=== PATIENT | female | born 1940 | race Caucasian/White ===

== ENCOUNTER 2022-08-06 15:44 | Inpatient (IN) ==
--- NOTE | 2022-08-06 16:45 | DR.GENAD ---
HPI Time Seen Time Seen by Provider: 08/06/22 16:43 PCP Primary Care Physician: Adán Hall Complaint/Symptoms Chief Complaint:: Bilateral cellulitus to feet, patient has had confusion x several months but seems worse today. Patient c/o of severe pain lower legs and feet Self Treatment fo Chief Complaint: seen in [facility] earlier in the week COVID-19 Coronavirus risk:travel/contact w/high risk person: No Has patient experienced Coronavirus symptoms: No Source History Provided: Patient and Family Member Mode of Arrival Mode of Arrival: Wheelchair Timing Onset of Chief Complaint: 08/06/22 PMH PMH Past Medical History: Yes Past Medical History: Coronary Artery Disease Past Medical History Comment: Rnal failure, Stents and CABG, cervical CA Past Surgical History: Yes Surgical History: CABG/Valve Surgery, Cholecystectomy, [employer] Surgery, Hysterectomy and Ortho Surgery Family History History of Family Medical Conditions: Yes Family Medical History: Diabetes Mellitus, Coronary Artery Disease and Hypertension Social History Does patient currently use any type of tobacco product: No Have you used tobacco products in the last 12 months: No Type of Tobacco Use: None Does any household member use tobacco: No Alcohol Use: None Do you use any recreational Drugs:: No Lives With: Alone Lives Where: Home Travel Risk Coronavirus risk:travel/contact w/high risk person: No Has patient experienced Coronavirus symptoms: No Infectious screening In the last 2 months have you had wt loss of >10#?: NO Have you had fever, night sweats or hemotysis?: No Have you traveled outside the country in the last 6 months?: No Isolation: Standard PE Vital Signs Vitals: Temperature 98.4 F Pulse Rate 110 Respiratory Rate 24 Blood Pressure 113/55 O2 Sat by Pulse Oximetry 96 ROR Labs Reviewed Result Diagrams: 08/06/22 17:34 08/06/22 17:34 Laboratory: WBC 14.5 X10^3/uL (3.6-10.0) H 08/06/22 17:34 RBC 3.48 X10^6/uL (3.5-5.4) L 08/06/22 17:34 Hgb 10.8 g/dL (12.0-16.0) L 08/06/22 17:34 Hct 31.7 % (36.0-47.0) L 08/06/22 17:34 MCV 91.2 fL (80.0-100.0) 08/06/22 17:34 MCH 31.0 pg (27.0-34.0) 08/06/22 17: MCHC 34.0 g/dL (33.0-35.0) 08/06/22 17:34 RDW 14.1 % (11.6-16.5) 08/06/22 17:34 Plt Count 241 X10^3/uL (150.0-450.0) 08/06/22 17:34 MPV 9.2 fL (7.4-11.0) 08/06/22 17:34 Neut % (Auto) 76.7 % (42.0-75.0) H 08/06/22 17:34 Lymph % (Auto) 13.1 % (21.0-51.0) L 08/06/22 17:34 [place] % (Auto) 8.6 % (0.0-13.0) 08/06/22 17:34 Eos % (Auto) 0.8 % (0.9-2.9) L 08/06/22 17:34 Baso % (Auto) 0.8 % (0.2-1.0) 08/06/22 17:34 Neut # (Auto) 11.1 x10^3/uL (2.2-4.8) H 08/06/22 17:34 Lymph # (Auto) 1.9 X10^3/uL (1.3-2.9) 08/06/22 17:34 [place] # (Auto) 1.2 x10^3/uL (0.3-0.8) H 08/06/22 17:34 Eos # (Auto) 0.1 x10^3/uL (0.0-0.2) 08/06/22 17:34 Baso # (Auto) 0.1 X10^3/uL (0.0-0.1) 08/06/22 17:34 Absolute Nucleated RBC 0.0 /100WBC 08/06/22 17:34 Sodium 136 mmol/L (136-145) 08/06/22 17:34 Corrected Sodium TNP 08/06/22 17:34 Potassium 4.7 mmol/L (3.5-5.1) 08/06/22 17:34 Chloride 100 mmol/L (98-107) 08/06/22 17:34 Carbon Dioxide 26.3 mmol/L (21-32) 08/06/22 17:34 BUN 25 mg/dL (7-18) H 08/06/22 17:34 Creatinine 1.56 mg/dL (0.55-1.02) H 08/06/22 17:34 Est GFR (MDRD) Af Amer 41 (>60) L 08/06/22 17:34 Est GFR (MDRD) Non-Af 34 (>60) L 08/06/22 17:34 Glucose 104 mg/dL (65-99) H 08/06/22 17:34 Lactic Acid 0.8 mmol/L (0.4-2.0) 08/06/22 17:34 Calcium 9.4 mg/dL (8.5-10.1) 08/06/22 17:34 Corrected Calcium 10.0 mg/dL (8.5-10.1) 08/06/22 17:34 Total Bilirubin 0.50 mg/dL (0.2-1.0) 08/06/22 17:34 AST 21 Units/L (15-37) 08/06/22 17:34 ALT 19 Units/L (12-78) 08/06/22 17:34 Alkaline Phosphatase 88 Units/L (46-116) 08/06/22 17:34 Ammonia < 10 umol/L (11-32) L 08/06/22 17:34 Troponin I High Sens 4.1 ng/L (4.0-60.0) 08/06/22 17:34 B-Natriuretic Peptide 193 pg/mL (0-79) H 08/06/22 17:34 Total Protein 7.0 g/dL (6.4-8.2) 08/06/22 17:34 Albumin 3.3 g/dL (3.4-5.0) L 08/06/22 17:34 Globulin 3.7 g/dL (2.5-4.5) 08/06/22 17:34 Albumin/Globulin Ratio 0.9 Ratio (1.1-2.1) L 08/06/22 17:34 Specimen Type Catherized urine 08/06/22 19:45 Urine Color Pale yellow (YELLOW) 08/06/22 19:45 Urine Appearance Clear (CLEAR) 08/06/22 19:45 Urine pH 6.0 (5.0 - 8.0) 08/06/22 19:45 Ur Specific [place] 1.015 (1.000-1.030) 08/06/22 19:45 Urine Protein 1+ (NEGATIVE) 08/06/22 19:45 Urine Glucose (UA) Negative (NEGATIVE) 08/06/22 19:45 Urine Ketones Negative (NEGATIVE) 08/06/22 19:45 Urine Blood Negative (NEGATIVE) 08/06/22 19:45 Urine Nitrite Negative (NEGATIVE) 08/06/22 19:45 Urine Bilirubin Negative (NEGATIVE) 08/06/22 19:45 Urine Urobilinogen Normal (NORMAL) 08/06/22 19:45 Ur Leukocyte Esterase 1+ (NEGATIVE) 08/06/22 19:45 Urine RBC None seen /HPF (0-3) 08/06/22 19:45 Urine WBC 0-2 /HPF (0-5) 08/06/22 19:45 Ur Squamous Epith Cells Rare /HPF (NEGATIVE) 08/06/22 19:45 Urine Bacteria Negative /HPF (NEGATIVE) 08/06/22 19:45 Ur Culture Indicated? No/not indicated 08/06/22 19:45 Opioid Opioid Risk Tool Age (Javier box if 16-45): No History of Preadolescent Sexual Abuse: No Total: 0 Total Score Risk Category: Low Risk Copyright: Byron JUSTIN predicting aberrant behaviors Discharge Plan Discharge Plan Patient Disposition: 01 HOME, SELF-CARE Condition: Stable Orders to Discharge Patient Discharge Orders: Transfer (Routine); Ordered 08/06/22 Ordered By: HELADIO CUMMINGS
[2022-08-06] MEDS ORDERED: NS 1,000 ML IV 1,000 ML ONE (16:59)
--- NOTE | 2022-08-06 17:04 | EKG ---
Test Reason : HTN Blood Pressure : */* mmHG Vent. Rate : 97 BPM Atrial Rate : 97 BPM P-R Int : 174 ms QRS Dur : 160 ms QT Int : 398 ms P-R-T Axes : 44 4 -11 degrees QTc Int : 505 ms Normal sinus rhythm Right bundle branch block Septal infarct , age undetermined T wave abnormality, consider lateral ischemia Abnormal ECG No previous ECGs available Confirmed by Robson Gaitan ([id number]) on 08/08/2022 7:43:07 AM Referred By: Confirmed By: Robson Gaitan
[2022-08-06] MEDS: NS 1,000 ML IV 1,000 ML IV SCH (17:31)
--- NOTE | 2022-08-06 17:38 | CT ---
EXAM: HEAD CT WITHOUT INTRAVENOUS CONTRASTHISTORY: Altered mental status.TECHNIQUE: Spiral axial CT images are obtained through the brain without the administration of intravenous contrast. Additional sagittal and coronal reformatted images are reconstructed.DOSIMETRY: Total DLP 864.84 mGycm; CTDI 48 mGyCOMPARISON: None available.FINDINGS:There are patchy parenchymal lucencies within the white matter tracks of the centrum semiovale, consistent with chronic sequela of atherosclerotic microvascular ischemic disease. Severe atherosclerosis of the carotid siphons is seen. Consider follow-up MRA as clinically warranted.There is moderate diffuse cerebral cortical atrophy. The centrum semiovale, basal ganglia, cerebellum, and brainstem are otherwise grossly unremarkable for a noncontrast CT scan. There is no acute intracranial hemorrhage, gross acute infarction, mass lesion, midline shift, or hydrocephalus seen. No extra-axial mass or abnormal fluid collection noted.The calvarium is intact. The partially imaged paranasal sinuses, middle ear cavities and mastoid air cells are clear.IMPRESSION:1. Chronic microvascular ischemic disease, but no discernible acute infarction seen. Consider followup MRI with diffusion-weighted imaging to rule out occult acute infarction if clinically warranted.2. Severe atherosclerosis of the carotid siphons is seen. Consider follow-up MRA as clinically warranted.3. No skull fracture, intracranial hemorrhage, mass lesion, midline shift, or hydrocephalus seen.Electronically signed by: Kalyani Moore (Aug 06, 2022 17:37:40)
[2022-08-06 17:51] LABS: BASOPHILS # (AUTO) 0.1 X10^3/uL (0.0-0.1); BASOPHILS % (AUTO) 0.8 % (0.2-1.0); EOSINOPHILS # (AUTO) 0.1 x10^3/uL (0.0-0.2); EOSINOPHILS % (AUTO) 0.8 % (0.9-2.9); HEMATOCRIT 31.7 % (36.0-47.0); HEMOGLOBIN 10.8 g/dL (12.0-16.0); LYMPHOCYTES # (AUTO) 1.9 X10^3/uL (1.3-2.9); LYMPHOCYTES % (AUTO) 13.1 % (21.0-51.0); MEAN CORPUSCULAR VOLUME 91.2 fL (80.0-100.0); MEAN PLATELET VOLUME 9.2 fL (7.4-11.0); MONOCYTES # (AUTO) 1.2 x10^3/uL (0.3-0.8); MONOCYTES % (AUTO) 8.6 % (0.0-13.0); NEUTROPHILS # (AUTO) 11.1 x10^3/uL (2.2-4.8); NEUTROPHILS % (AUTO) 76.7 % (42.0-75.0); RED BLOOD COUNT 3.48 X10^6/uL (3.5-5.4); RED CELL DISTRIBUTION WIDTH 14.1 % (11.6-16.5); WHITE BLOOD COUNT 14.5 X10^3/uL (3.6-10.0)
[2022-08-06 18:09] LABS: LACTIC ACID 0.8 mmol/L (0.4-2.0)
[2022-08-06 18:12] LABS: ALANINE AMINOTRANSFERASE 19 Units/L (12-78); ALBUMIN 3.3 g/dL (3.4-5.0); ALKALINE PHOSPHATASE 88 Units/L (46-116); ASPARTATE AMINO TRANSFERASE 21 Units/L (15-37); BLOOD UREA NITROGEN 25 mg/dL (7-18); CALCIUM 9.4 mg/dL (8.5-10.1); CARBON DIOXIDE 26.3 mmol/L (21-32); CHLORIDE 100 mmol/L (98-107); CREATININE 1.56 mg/dL (0.55-1.02); SODIUM 136 mmol/L (136-145); eGFR NON BLACK RACES 34 (>60)
[2022-08-06 18:15] LABS: AMMONIA < 10 umol/L (11-32)
[2022-08-06 20:10] LABS: BILIRUBIN,URINE NEGATIVE (NEGATIVE); BLOOD/HEMOGLOBIN,URINE NEGATIVE (NEGATIVE); GLUCOSE, URINE NEGATIVE (NEGATIVE); KETONES,URINE NEGATIVE (NEGATIVE); LEUKOCYTE ESTERASE ,URINE 1+ (NEGATIVE); NITRITES,URINE NEGATIVE (NEGATIVE); PROTEIN,URINE 1+ (NEGATIVE); UROBILINOGEN,URINE NORMAL (NORMAL)
[2022-08-06 20:21] LABS: APPEARANCE,URINE CLEAR (CLEAR); COLOR,URINE PALE YELLOW (YELLOW)
[2022-08-06 20:22] LABS: BACTERIA,URINE NEGATIVE /HPF (NEGATIVE); RBC,URINE NONE SEEN /HPF (0-3); SQUAMOUS EPITHELIAL CELL,UR RARE /HPF (NEGATIVE)
[2022-08-06] MEDS ORDERED: CLEOCIN 300 MG IV PREMIX 300 MG/50 ML BAG IV ONE ×2 (22:14→22:17)
[2022-08-07 00:27] VITALS: BMI 25.4
[2022-08-07 05:53] LABS: BASOPHILS # (AUTO) 0.1 X10^3/uL (0.0-0.1); EOSINOPHILS # (AUTO) 0.2 x10^3/uL (0.0-0.2); EOSINOPHILS % (AUTO) 2.2 % (0.9-2.9); HEMATOCRIT 30.4 % (36.0-47.0); HEMOGLOBIN 10.4 g/dL (12.0-16.0); LYMPHOCYTES # (AUTO) 1.8 X10^3/uL (1.3-2.9); LYMPHOCYTES % (AUTO) 19.4 % (21.0-51.0); MEAN CORPUSCULAR HEMOGLOBIN 31.4 pg (27.0-34.0); MEAN CORPUSCULAR HGB CONC 34.3 g/dL (33.0-35.0); MEAN CORPUSCULAR VOLUME 91.5 fL (80.0-100.0); MEAN PLATELET VOLUME 9.1 fL (7.4-11.0); MONOCYTES # (AUTO) 0.9 x10^3/uL (0.3-0.8); MONOCYTES % (AUTO) 10.1 % (0.0-13.0); NEUTROPHILS # (AUTO) 6.2 x10^3/uL (2.2-4.8); NEUTROPHILS % (AUTO) 67.3 % (42.0-75.0); RED BLOOD COUNT 3.32 X10^6/uL (3.5-5.4); RED CELL DISTRIBUTION WIDTH 14.1 % (11.6-16.5); WHITE BLOOD COUNT 9.3 X10^3/uL (3.6-10.0)
[2022-08-07] MEDS ORDERED: CLEOCIN VIAL 600 MG 300 MG in D5W 50 ML IV 50 ML IV SCH (06:00)
[2022-08-07 06:16] LABS: ALANINE AMINOTRANSFERASE 22 Units/L (12-78); ALKALINE PHOSPHATASE 83 Units/L (46-116); ASPARTATE AMINO TRANSFERASE 24 Units/L (15-37); BLOOD UREA NITROGEN 24 mg/dL (7-18); CALCIUM 9.1 mg/dL (8.5-10.1); CARBON DIOXIDE 26.9 mmol/L (21-32); CHLORIDE 104 mmol/L (98-107); COR CA(FOR HYPOALB) 9.9 mg/dL (8.5-10.1); CREATININE 1.36 mg/dL (0.55-1.02); SODIUM 140 mmol/L (136-145); TOTAL PROTEIN 6.7 g/dL (6.4-8.2); eGFR NON BLACK RACES 40 (>60)
[2022-08-07] MEDS: NS 1,000 ML IV 1,000 ML IV SCH ×2 (08:09→21:03)
--- NOTE | 2022-08-07 11:41 | DR.H&P ---
H&P History & Physical for Day of: H&P Date: 08/07/22 Chief Complaint Chief Complaint: Bilateral foot pain, redness Allergies Allergies Allergy/AdvReac Type Severity Reaction Status Date / Time No Known Allergies Allergy Verified 08/07/22 04:58 History of Present Illness History of Present Illness: Pt is a 81 year old female past medical history of CAD, Hypertension, Neuropathy, presenting with worsening pain and redness of her feet. She has been treated outpatient for cellulitis with keflex x 2 courses without improvement. Pain has worsened and causing her to have difficulty with ambulation. She reports having some confusion. Denies fevers, chills. Labs/imag ing: Wbc 9.3, Hgb 10.4, Plt 233, Na 140, K 4.2, Creatinine 1.36, Glucose 86, UA negative, CT head negative for acute intracranial findings. Pt was admitted for bilateral foot cellulitis and started on IVF NS@75ml/h and IV antibiotics Clindamycin. Home medications will be restarted. Continue to closely monitor and follow up labs in the morning. Past Medical History Past Medical History: Coronary Artery Disease Past Surgical History Surgical History: Angioplasty/Stents, CABG/Valve Surgery, Cholecystectomy, Hysterectomy, Ortho Surgery, Tonsillectomy and Other Family History Family Medical History: Diabetes Mellitus, Coronary Artery Disease and Hype rtension Social History Does patient currently use any type of tobacco product: No Have you used tobacco products in the last 12 months: No Type of Tobacco Use: None Does any household member use tobacco: No Alcohol Use: None Drug Use: None Medications Home Medications: No Known Allergies Allergy (Verified 08/07/22 04:58) CONTINUE taking the following medications aspirin 81 mg tablet,delayed release 81 mg PO DAILY 08/06/22 [History] buspirone 5 mg tablet 5 mg PO DAILY 08/06/22 [History] calcium carbonate 600 mg-vitamin D3 10 mcg (400 unit) tablet (Calcium 600 + D(3)) 1 tab PO DAILY 08/06/22 [History] cephalexin 500 mg capsule 500 mg PO QID 08/06/22 [History] duloxetine 60 mg capsule,delayed release (Cymbalta) 60 mg PO DAILY antidepressant 08/06/22 [History] gabapentin 300 mg capsule 300 mg PO TID 08/06/22 [History] loratadine 10 mg capsule 10 mg PO QDAY 08/06/22 [History] muzdhtor-mdp-kktdh acid 0.4 mg-lycopene 300 mcg-lutein 250 mcg tablet (Centrum Silver) 1 tab PO DAILY 08/06/22 [History] nebivolol 5 mg tablet (Bystolic) 5 mg PO QDAY hypertension 08/06/22 [History] pantoprazole 40 mg tablet,delayed release (Protonix) 40 mg PO BID 08/06/22 [History] rosuvastatin 5 mg tablet (Crestor) 5 mg PO DAILY 08/06/22 [History] solifenacin 10 mg tablet (Vesicare) 10 mg PO DAILY overactive bladder 08/06/22 [History] trazodone 50 mg tablet 50 mg PO HS 08/06/22 [History] Labs Result Diagrams: 08/07/22 05:31 08/07/22 05:31 Labs: Laboratory WBC 9.3 X10^3/uL (3.6-10.0) 08/07/22 05:31 RBC 3.32 X10^6/uL (3.5-5.4) L 08/07/22 05:31 Hgb 10.4 g/dL (12.0-16.0) L 08/07/22 05:31 Hct 30.4 % (36.0-47.0) L 08/07/22 05:31 MCV 91.5 fL (80.0-100.0) 08/07/22 05:31 MCH 31.4 pg (27.0-34.0) 08/07/22 05:31 MCHC 34.3 g/dL (33.0-35.0) 08/07/22 05:31 RDW 14.1 % (11.6-16.5) 08/07/22 05:31 Plt Count 233 X10^3/uL (150.0-450.0) 08/07/22 05:31 MPV 9.1 fL (7.4-11.0) 08/07/22 05:31 Neut % (Auto) 67.3 % (42.0-75.0) 08/07/22 05:31 Lymph % (Auto) 19.4 % (21.0-51.0) L 08/07/22 05:31 [place] % (Auto) 10.1 % (0.0-13.0) 08/07/22 05:31 Eos % (Auto) 2.2 % (0.9-2.9) 08/07/22 05:31 Baso % (Auto) 1.0 % (0.2-1.0) 08/07/22 05:31 Neut # (Auto) 6.2 x10^3/uL (2.2-4.8) H 08/07/22 05:31 Lymph # (Auto) 1.8 X10^3/uL (1.3-2.9) 08/07/22 05:31 [place] # (Auto) 0.9 x10^3/uL (0.3-0.8) H 08/07/22 05:31 Eos # (Auto) 0.2 x10^3/uL (0.0-0.2) 08/07/22 05:31 Baso # (Auto) 0.1 X10^3/uL (0.0-0.1) 08/07/22 05:31 Absolute Nucleated RBC 0.0 /100WBC 08/07/22 05:31 Sodium 140 mmol/L (136-145) 08/07/22 05:31 Corrected Sodium TNP 08/07/22 05:31 Potassium 4.2 mmol/L (3.5-5.1) 08/07/22 05:31 Chloride 104 mmol/L (98-107) 08/07/22 05:31 Carbon Dioxide 26.9 mmol/L (21-32) 08/07/22 05:31 BUN 24 mg/dL (7-18) H 08/07/22 05:31 Creatinine 1.36 mg/dL (0.55-1.02) H 08/07/22 05:31 Est GFR (MDRD) Af Amer 48 (>60) L 08/07/22 05:31 Est GFR (MDRD) Non-Af 40 (>60) L 08/07/22 05:31 Glucose 86 mg/dL (65-99) 08/07/22 05:31 Lactic Acid 0.8 mmol/L (0.4-2.0) 08/06/22 17:34 Calcium 9.1 mg/dL (8.5-10.1) 08/07/22 05:31 Corrected Calcium 9.9 mg/dL (8.5-10.1) 08/07/22 05:31 Total Bilirubin 0.40 mg/dL (0.2-1.0) 08/07/22 05:31 AST 24 Units/L (15-37) 08/07/22 05:31 ALT 22 Units/L (12-78) 08/07/22 05:31 Alkaline Phosphatase 83 Units/L (46-116) 08/07/22 05:31 Ammonia < 10 umol/L (11-32) L 08/06/22 17:34 Troponin I High Sens 4.1 ng/L (4.0-60.0) 08/06/22 17:34 B-Natriuretic Peptide 193 pg/mL (0-79) H 08/06/22 17:34 Total Protein 6.7 g/dL (6.4-8.2) 08/07/22 05:31 Albumin 3.0 g/dL (3.4-5.0) L 08/07/22 05:31 Globulin 3.7 g/dL (2.5-4.5) 08/07/22 05:31 Albumin/Globulin Ratio 0.8 Ratio (1.1-2.1) L 08/07/22 05:31 Specimen Type Catherized urine 08/06/22 19:45 Urine Color Pale yellow (YELLOW) 08/06/22 19:45 Urine Appearance Clear (CLEAR) 08/06/22 19:45 Urine pH 6.0 (5.0 - 8.0) 08/06/22 19:45 Ur Specific [place] 1.015 (1.000-1.030) 08/06/22 19:45 Urine Protein 1+ (NEGATIVE) 08/06/22 19:45 Urine Glucose (UA) Negative (NEGATIVE) 08/06/22 19:45 Urine Ketones Negative (NEGATIVE) 08/06/22 19:45 Urine Blood Negative (NEGATIVE) 08/06/22 19:45 Urine Nitrite Negative (NEGATIVE) 08/06/22 19:45 Urine Bilirubin Negative (NEGATIVE) 08/06/22 19:45 Urine Urobilinogen Normal (NORMAL) 08/06/22 19:45 Ur Leukocyte Esterase 1+ (NEGATIVE) 08/06/22 19:45 Urine RBC None seen /HPF (0-3) 08/06/22 19:45 Urine WBC 0-2 /HPF (0-5) 08/06/22 19:45 Ur Squamous Epith Cells Rare /HPF (NEGATIVE) 08/06/22 19:45 Urine Bacteria Negative /HPF (NEGATIVE) 08/06/22 19:45 Ur Culture Indicated? No/not indicated 08/06/22 19:45 Review of Systems Constitutional: No Symptoms Reported Eyes: No Symptoms Reported ENT: No Symptoms Reported Respiratory: No Symptoms Reported Cardiovascular: No Symptoms Reported Gastrointestinal: No Symptoms Reported Genitourinary: No Symptoms Reported Musculoskeletal: No Symptoms Reported Skin: Rash (foot erythema) Neurological: No Symptoms Reported Physical Exam Vital Signs: Temperature 98.2 F Pulse Rate [Left] 81 Pulse Rate 110 Respiratory Rate 18 Blood Pressure [Left Arm] 100/55 Blood Pressure 113/55 O2 Sat by Pulse Oximetry 95 Oriented: Normal Eyes: Normal Ear: Normal Nose: Normal Throat: Normal Respiratory: Clear Throughout Cardiovascular: Normal : Normal Auscultation: Bowel Sounds: Normal Palpation: Normal Tenderness: Normal Skin: Red (erythema b/l feet) Musculoskeletal: Normal Psychiatric: Normal Mood Description: Calm and Appropriate Affect: Normal Speech Pattern: Clear and Appropriate Assessment/Plan (1) Cellulitis of both feet: Status: Acute Plan: IV antibiotics. Review H&P Reviewed: Yes Patient was examined?: Yes
[2022-08-07] MEDS: CLEOCIN 300 MG IV PREMIX 300 MG/50 ML BAG IV SCH ×2 (14:29→21:04)
[2022-08-07] MEDS: NEURONTIN CAP 300 MG PO PRN (21:03)
[2022-08-07] MEDS: DESYREL PO SCH (21:03)
[2022-08-07] MEDS: PROTONIX TAB 40 MG PO SCH (21:04)
[2022-08-08] MEDS: CLEOCIN 300 MG IV PREMIX 300 MG/50 ML BAG IV SCH ×3 (05:40→21:00)
[2022-08-08 06:56] LABS: BASOPHILS % (AUTO) 0.2 % (0.2-1.0); EOSINOPHILS # (AUTO) 0.2 x10^3/uL (0.0-0.2); EOSINOPHILS % (AUTO) 2.7 % (0.9-2.9); HEMATOCRIT 29.3 % (36.0-47.0); HEMOGLOBIN 10.1 g/dL (12.0-16.0); LYMPHOCYTES # (AUTO) 1.5 X10^3/uL (1.3-2.9); LYMPHOCYTES % (AUTO) 19.7 % (21.0-51.0); MEAN CORPUSCULAR HEMOGLOBIN 31.4 pg (27.0-34.0); MEAN CORPUSCULAR HGB CONC 34.4 g/dL (33.0-35.0); MEAN CORPUSCULAR VOLUME 91.3 fL (80.0-100.0); MONOCYTES # (AUTO) 0.8 x10^3/uL (0.3-0.8); MONOCYTES % (AUTO) 9.8 % (0.0-13.0); NEUTROPHILS # (AUTO) 5.2 x10^3/uL (2.2-4.8); NEUTROPHILS % (AUTO) 67.6 % (42.0-75.0); RED BLOOD COUNT 3.21 X10^6/uL (3.5-5.4); RED CELL DISTRIBUTION WIDTH 13.9 % (11.6-16.5); WHITE BLOOD COUNT 7.7 X10^3/uL (3.6-10.0)
[2022-08-08 07:01] LABS: ALBUMIN 2.5 g/dL (3.4-5.0); CALCIUM 8.6 mg/dL (8.5-10.1); CARBON DIOXIDE 25.6 mmol/L (21-32); COR CA(FOR HYPOALB) 9.8 mg/dL (8.5-10.1); CREATININE 1.18 mg/dL (0.55-1.02); TOTAL PROTEIN 6.2 g/dL (6.4-8.2)
--- NOTE | 2022-08-08 08:58 | PCM.PROG ---
Progress Note Progress Note for Day of Date of Exam: 08/08/22 Subjective Subjective: Pt is a 81 year old female past medical history of CAD, Hypertension, Neuropathy, admitted for cellulitis. This morning she is resting comfortably in bed. No acute events overnight. Labs/imaging: Wbc 7.7, Hgb 10.1, Plt 240, Na 139, K 4.1, Creatinine 1.18, Glucose 113. Blood cultures pending. Erythema is improving. Will continue with IVF NS@75ml/h and IV antibiotics Clindamycin. Home medications have been resumed. Continue to closely monitor and follow up labs in the morning. Past Medical Family Social History Allergies: Allergies No Known Allergies Allergy (Verified 08/07/22 04:58) Review of Systems ROS changes noted: see HPI Vital Signs and I&O's Vital Signs: Temperature 97.7 F Pulse Rate [Left] 75 Pulse Rate 110 Respiratory Rate 18 Blood Pressure [Left Arm] 122/60 Blood Pressure 113/55 O2 Sat by Pulse Oximetry 96 Intake and Output: Intake & Output 08/05/22 08/06/22 08/07/22 08/08/22 23:59 23:59 23:59 23:59 Intake Total 1854 240 / 240 Balance 1854 240 / 240 Physical Exam Oriented: Normal Eyes: Normal Ear: Normal Nose: Normal Throat: Normal Respiratory: Normal Cardiovascular: Normal : Normal Auscultation: Bowel Sounds: Normal Tenderness: Normal Skin: Red (erythema b/l feet) Musculoskeletal: Normal Psychiatric: Normal Mood Description: Calm Affect: Normal Speech Pattern: Clear and Appropriate Laboratory and Diagnostics Result Diagrams: 08/08/22 06:34 08/08/22 06:34 Labs: Laboratory WBC 7.7 X10^3/uL (3.6-10.0) 08/08/22 06:34 RBC 3.21 X10^6/uL (3.5-5.4) L 08/08/22 06:34 Hgb 10.1 g/dL (12.0-16.0) L 08/08/22 06:34 Hct 29.3 % (36.0-47.0) L 08/08/22 06:34 MCV 91.3 fL (80.0-100.0) 08/08/22 06:34 MCH 31.4 pg (27.0-34.0) 08/08/22 06:34 MCHC 34.4 g/dL (33.0-35.0) 08/08/22 06:34 RDW 13.9 % (11.6-16.5) 08/08/22 06:34 Plt Count 240 X10^3/uL (150.0-450.0) 08/08/22 06:34 MPV 9.0 fL (7.4-11.0) 08/08/22 06:34 Neut % (Auto) 67.6 % (42.0-75.0) 08/08/22 06:34 Lymph % (Auto) 19.7 % (21.0-51.0) L 08/08/22 06:34 [place] % (Auto) 9.8 % (0.0-13.0) 08/08/22 06:34 Eos % (Auto) 2.7 % (0.9-2.9) 08/08/22 06:34 Baso % (Auto) 0.2 % (0.2-1.0) 08/08/22 06:34 Neut # (Auto) 5.2 x10^3/uL (2.2-4.8) H 08/08/22 06:34 Lymph # (Auto) 1.5 X10^3/uL (1.3-2.9) 08/08/22 06:34 [place] # (Auto) 0.8 x10^3/uL (0.3-0.8) 08/08/22 06:34 Eos # (Auto) 0.2 x10^3/uL (0.0-0.2) 08/08/22 06:34 Baso # (Auto) 0.0 X10^3/uL (0.0-0.1) 08/08/22 06:34 Absolute Nucleated RBC 0.1 /100WBC 08/08/22 06:34 Sodium 139 mmol/L (136-145) 08/08/22 06:34 Corrected Sodium 139 mmol/L (136-145) 08/08/22 06:34 Potassium 4.1 mmol/L (3.5-5.1) 08/08/22 06:34 Chloride 107 mmol/L (98-107) 08/08/22 06:34 Carbon Dioxide 25.6 mmol/L (21-32) 08/08/22 06:34 BUN 18 mg/dL (7-18) 08/08/22 06:34 Creatinine 1.18 mg/dL (0.55-1.02) H 08/08/22 06:34 Est GFR (MDRD) Af Amer 56 (>60) L 08/08/22 06:34 Est GFR (MDRD) Non-Af 47 (>60) L 08/08/22 06:34 Glucose 113 mg/dL (65-99) H 08/08/22 06:34 Lactic Acid 0.8 mmol/L (0.4-2.0) 08/06/22 17:34 Calcium 8.6 mg/dL (8.5-10.1) 08/08/22 06:34 Corrected Calcium 9.8 mg/dL (8.5-10.1) 08/08/22 06:34 Total Bilirubin 0.20 mg/dL (0.2-1.0) 08/08/22 06:34 AST 22 Units/L (15-37) 08/08/22 06:34 ALT 19 Units/L (12-78) 08/08/22 06:34 Alkaline Phosphatase 75 Units/L (46-116) 08/08/22 06:34 Ammonia < 10 umol/L (11-32) L 08/06/22 17:34 Troponin I High Sens 4.1 ng/L (4.0-60.0) 08/06/22 17:34 B-Natriuretic Peptide 193 pg/mL (0-79) H 08/06/22 17:34 Total Protein 6.2 g/dL (6.4-8.2) L 08/08/22 06:34 Albumin 2.5 g/dL (3.4-5.0) L 08/08/22 06:34 Globulin 3.7 g/dL (2.5-4.5) 08/08/22 06:34 Albumin/Globulin Ratio 0.7 Ratio (1.1-2.1) L 08/08/22 06:34 Specimen Type Catherized urine 08/06/22 19:45 Urine Color Pale yellow (YELLOW) 08/06/22 19:45 Urine Appearance Clear (CLEAR) 08/06/22 19:45 Urine pH 6.0 (5.0 - 8.0) 08/06/22 19:45 Ur Specific [place] 1.015 (1.000-1.030) 08/06/22 19:45 Urine Protein 1+ (NEGATIVE) 08/06/22 19:45 Urine Glucose (UA) Negative (NEGATIVE) 08/06/22 19:45 Urine Ketones Negative (NEGATIVE) 08/06/22 19:45 Urine Blood Negative (NEGATIVE) 08/06/22 19:45 Urine Nitrite Negative (NEGATIVE) 08/06/22 19:45 Urine Bilirubin Negative (NEGATIVE) 08/06/22 19:45 Urine Urobilinogen Normal (NORMAL) 08/06/22 19:45 Ur Leukocyte Esterase 1+ (NEGATIVE) 08/06/22 19:45 Urine RBC None seen /HPF (0-3) 08/06/22 19:45 Urine WBC 0-2 /HPF (0-5) 08/06/22 19:45 Ur Squamous Epith Cells Rare /HPF (NEGATIVE) 08/06/22 19:45 Urine Bacteria Negative /HPF (NEGATIVE) 08/06/22 19:45 Ur Culture Indicated? No/not indicated 08/06/22 19:45 Plan (1) Cellulitis of both feet: Status: Acute Plan: IV antibiotics.
[2022-08-08] MEDS ORDERED: SOLIFENACIN 10 MG PO SCH ×3 (09:00→21:00)
[2022-08-08] MEDS ORDERED: NEBIVOLOL 5 MG PO SCH (09:00)
[2022-08-08] MEDS: LOVENOX INJ 40 MG SYR SC SCH (09:49)
[2022-08-08] MEDS: NEURONTIN CAP 300 MG PO PRN (09:49)
[2022-08-08] MEDS: CRESTOR TAB 10 MG PO SCH (09:50)
[2022-08-08] MEDS: BUSPAR PO SCH (09:50)
[2022-08-08] MEDS: ASPIRIN EC 81 MG PO SCH (09:50)
[2022-08-08] MEDS: CYMBALTA PO SCH (09:50)
[2022-08-08] MEDS: PROTONIX TAB 40 MG PO SCH ×2 (09:51→20:49)
--- NOTE | 2022-08-08 10:28 | RAD ---
HISTORYShortness of breath relevant Clinical InformationSTUDYCHEST, 1 VIEWCOMPARISONNoneFINDINGSMedian sternotomy wires. Heart size is enlarged. Interstitial infiltrates are present bilaterally, nonspecific. No pneumothorax or confluent airspace opacity.IMPRESSIONMild, nonspecific bilateral interstitial infiltrates. No prior studies available for comparison. Chronic interstitial changes could have this appearance.Electronically signed by: Ghassan Angelo (Aug 06, 2022 19:35:47)
[2022-08-08] MEDS: NS 1,000 ML IV 1,000 ML IV SCH ×2 (11:00→13:54)
[2022-08-08] MEDS: NEURONTIN CAP 300 MG PO SCH ×2 (13:53→21:00)
[2022-08-08] MEDS: NEBIVOLOL 5 MG PO SCH (13:56)
[2022-08-08] MEDS: DESYREL PO SCH (20:49)
[2022-08-09] MEDS: NS 1,000 ML IV 1,000 ML IV SCH (01:28)
[2022-08-09] MEDS: CLEOCIN 300 MG IV PREMIX 300 MG/50 ML BAG IV SCH (05:32)
[2022-08-09] MEDS: NEURONTIN CAP 300 MG PO SCH (05:32)
[2022-08-09 06:34] LABS: BASOPHILS # (AUTO) 0.1 X10^3/uL (0.0-0.1); BASOPHILS % (AUTO) 0.9 % (0.2-1.0); EOSINOPHILS # (AUTO) 0.2 x10^3/uL (0.0-0.2); EOSINOPHILS % (AUTO) 2.3 % (0.9-2.9); HEMATOCRIT 29.4 % (36.0-47.0); HEMOGLOBIN 10.2 g/dL (12.0-16.0); LYMPHOCYTES # (AUTO) 1.4 X10^3/uL (1.3-2.9); LYMPHOCYTES % (AUTO) 20.4 % (21.0-51.0); MEAN CORPUSCULAR HEMOGLOBIN 31.6 pg (27.0-34.0); MEAN CORPUSCULAR HGB CONC 34.8 g/dL (33.0-35.0); MEAN CORPUSCULAR VOLUME 90.8 fL (80.0-100.0); MEAN PLATELET VOLUME 8.7 fL (7.4-11.0); MONOCYTES # (AUTO) 0.6 x10^3/uL (0.3-0.8); MONOCYTES % (AUTO) 8.6 % (0.0-13.0); NEUTROPHILS # (AUTO) 4.6 x10^3/uL (2.2-4.8); NEUTROPHILS % (AUTO) 67.8 % (42.0-75.0); RED BLOOD COUNT 3.24 X10^6/uL (3.5-5.4); RED CELL DISTRIBUTION WIDTH 13.7 % (11.6-16.5); WHITE BLOOD COUNT 6.7 X10^3/uL (3.6-10.0)
[2022-08-09 06:46] LABS: ALANINE AMINOTRANSFERASE 22 Units/L (12-78); ALBUMIN 2.6 g/dL (3.4-5.0); ALKALINE PHOSPHATASE 76 Units/L (46-116); ASPARTATE AMINO TRANSFERASE 23 Units/L (15-37); BLOOD UREA NITROGEN 12 mg/dL (7-18); CALCIUM 8.7 mg/dL (8.5-10.1); CARBON DIOXIDE 23.8 mmol/L (21-32); CHLORIDE 108 mmol/L (98-107); COR CA(FOR HYPOALB) 9.8 mg/dL (8.5-10.1); CREATININE 1.03 mg/dL (0.55-1.02); SODIUM 142 mmol/L (136-145); TOTAL PROTEIN 6.4 g/dL (6.4-8.2); eGFR NON BLACK RACES 55 (>60)
[2022-08-09] MEDS: BUSPAR PO SCH (09:30)
[2022-08-09] MEDS: NEBIVOLOL 5 MG PO SCH (09:30)
[2022-08-09] MEDS: CYMBALTA PO SCH (09:32)
[2022-08-09] MEDS: ASPIRIN EC 81 MG PO SCH (09:32)
[2022-08-09] MEDS: PROTONIX TAB 40 MG PO SCH (09:32)
[2022-08-09] MEDS: CRESTOR TAB 10 MG PO SCH (09:32)
[2022-08-09] MEDS: LOVENOX INJ 40 MG SYR SC SCH (09:33)
[2022-08-09 14:08] VITALS: BP 141/67
== END 2022-08-09 14:30 | disposition home or self-care (01) | DRG 603 ==
LOC: ER 15:44 → MED/SURG 22:25
PROVIDERS: ADMIT Internal Medicine; ATTEND Internal Medicine
DX: I25.10 Atherosclerotic heart disease of native coronary artery without angina pectoris; L03.116 Cellulitis of left lower limb; E86.0 Dehydration; R94.31 Abnormal electrocardiogram [ECG] [EKG]; R06.02 Shortness of breath; I10 Essential (primary) hypertension; R41.82 Altered mental status, unspecified; L03.115 Cellulitis of right lower limb

== ENCOUNTER 2022-08-12 14:16 | Observation (INO) ==
--- NOTE | 2022-08-12 14:29 | DR.EXTPAIN ---
HPI Time seen Time Seen by Provider: 08/12/22 14:29 Complaint/Symptoms Chief Complaint Doctor Comments: DISCHARGED FROM HOSPITAL 3 DAYS AGO WITH CELLULITIS OF LEGS. SENT HOME ON ANTIBIOTIC AND STATED THAT LEGS HAVE NOT IMPROVED. IS AFEBRILE ON ER EVALUATION. PMH PMH Past Medical History: Coronary Artery Disease Past Surgical History: Yes Surgical History: Angioplasty/Stents, CABG/Valve Surgery, Cholecystectomy, Hysterectomy, Ortho Surgery, Tonsillectomy and Other Family History Family Medical History: Diabetes Mellitus, Coronary Artery Disease and Hypertension Social History Do you use any recreational Drugs:: No ROS Review of Systems Constitutional: Other (SWELLING OG BOTH FEET DUE TO CELLULITIS) Eyes: No Symptoms Reported ENTM: No Symptoms Reported Respiratoy: No Symptoms Reported Cardiovascular: No Symptoms Reported Gastrointestinal/Abdominal: No Symptoms Reported Genitourinary: No Symptoms Reported Neurological: No Symptoms Reported Musculoskeletal: No Symptoms Reported Integumentary: No Symptoms Reported Hematologic/Lymphatic: No Symptoms Reported Endocrine: No Symptoms Reported Psychiatric: No Symptoms Reported PE Vital Signs Vitals: Temperature 98.7 F Pulse Rate 97 Respiratory Rate 20 Blood Pressure [Left Arm] 141/67 Blood Pressure 123/57 O2 Sat by Pulse Oximetry 96 General Limitations: Physical Limitation (LIMITED AMBULATION DUE TO BILATERAL FOOT PAIN) General Appearance: Alert and In Distress (MILD DISTRESS) Head Head Exam: Normal Inspection, Atraumatic and Normocephalic Eyes Eye exam: Normal Appearance, PERRL and EOMI ENT ENT Exam: Normal Exam, Normal Oropharynx and Normal External Ear Exam Neck Neck Exam: Normal Inspection and Full ROM Chest Chest Inspection: Normal Inspection and Symmetric Chest Wall Rise Respiratory Respiratory Exam: Normal Lung Sounds Bilat Respiratory Exam: Bilateral: Clear to Auscultation Cardiovascular Cardiovascular Exam: Regular Rate and Normal Rhythm Abdominal Exam Abdominal Exam: Normal Inspection, Normal Bowel Sounds and Soft Extremities Extremities Exam: Normal Inspection and Full ROM Upper Extremities Shoulder Exam: Normal Inspection Arm Exam: Normal Inspection Elbow Exam: Normal Inspection Forearm Exam: Normal Inspection Hand Exam: Normal Inspection Neuromotor Exam: Normal Exam Lower Extremities Hip/Pelvis Exam: Normal Inspection Upper Leg Exam: Normal Inspection Knee Exam: Normal Inspection Lower Leg Exam: Normal Inspection Ankle Exam: Normal Inspection and Full ROM Foot/Toe Exam: Tenderness (BOTH FEET), Swelling and Erythema Gait Exam: Antalgic Back Back Exam: Normal Inspection Neurological Neurological Exam: Alert, Oriented X3 and CN II-XII Intact Psychiatric Psychiatric Exam: Depressed MDM Differential Diagnosis Differential Diagnosis: Other (CELLULITIS BOTH FEET) COURSE Treatment Treatment: PATIENT WAS GIVEN A ONE LITER BOLUS OF NACL AND ROCEPHINE1 GRAM IM. WILL INCREASE CLINDAMYCIN TO 600MG TID AND ADD HYDROCODONE 7.5/325 BID FOR PAIN. FOLLOWUP WITH PCP IN 3-4 DAYS. ROR Labs Reviewed Laboratory Results Reviewed?: Yes Result Diagrams: 08/12/22 15:35 08/12/22 15:35 Laboratory: WBC 10.7 X10^3/uL (3.6-10.0) H 08/12/22 15:35 RBC 3.16 X10^6/uL (3.5-5.4) L 08/12/22 15:35 Hgb 9.8 g/dL (12.0-16.0) L 08/12/22 15:35 Hct 28.4 % (36.0-47.0) L 08/12/22 15:35 MCV 89.9 fL (80.0-100.0) 08/12/22 15:35 MCH 31.1 pg (27.0-34.0) 08/12/22 15:35 MCHC 34.6 g/dL (33.0-35.0) 08/12/22 15:35 RDW 13.6 % (11.6-16.5) 08/12/22 15:35 Plt Count 299 X10^3/uL (150.0-450.0) 08/12/22 15:35 MPV 7.8 fL (7.4-11.0) 08/12/22 15:35 Neut % (Auto) 72.2 % (42.0-75.0) 08/12/22 15:35 Lymph % (Auto) 12.3 % (21.0-51.0) L 08/12/22 15:35 [place] % (Auto) 12.5 % (0.0-13.0) 08/12/22 15:35 Eos % (Auto) 1.9 % (0.9-2.9) 08/12/22 15:35 Baso % (Auto) 1.1 % (0.2-1.0) H 08/12/22 15:35 Neut # (Auto) 7.7 x10^3/uL (2.2-4.8) H 08/12/22 15:35 Lymph # (Auto) 1.3 X10^3/uL (1.3-2.9) 08/12/22 15:35 [place] # (Auto) 1.3 x10^3/uL (0.3-0.8) H 08/12/22 15:35 Eos # (Auto) 0.2 x10^3/uL (0.0-0.2) 08/12/22 15:35 Baso # (Auto) 0.1 X10^3/uL (0.0-0.1) 08/12/22 15:35 Absolute Nucleated RBC 0.0 /100WBC 08/12/22 15:35 Sodium 136 mmol/L (136-145) 08/12/22 15:35 Corrected Sodium 136 mmol/L (136-145) 08/12/22 15:35 Potassium 3.8 mmol/L (3.5-5.1) 08/12/22 15:35 Chloride 102 mmol/L (98-107) 08/12/22 15:35 Carbon Dioxide 27.0 mmol/L (21-32) 08/12/22 15:35 BUN 17 mg/dL (7-18) 08/12/22 15:35 Creatinine 1.17 mg/dL (0.55-1.02) H 08/12/22 15:35 Est GFR (MDRD) Af Amer 57 (>60) L 08/12/22 15:35 Est GFR (MDRD) Non-Af 47 (>60) L 08/12/22 15:35 Glucose 116 mg/dL (65-99) H 08/12/22 15:35 Lactic Acid 0.7 mmol/L (0.4-2.0) 08/12/22 15:35 Calcium 8.8 mg/dL (8.5-10.1) 08/12/22 15:35 Corrected Calcium 9.9 mg/dL (8.5-10.1) 08/12/22 15:35 Total Bilirubin 0.30 mg/dL (0.2-1.0) 08/12/22 15:35 AST 19 Units/L (15-37) 08/12/22 15:35 ALT 19 Units/L (12-78) 08/12/22 15:35 Alkaline Phosphatase 76 Units/L (46-116) 08/12/22 15:35 Total Protein 6.7 g/dL (6.4-8.2) 08/12/22 15:35 Albumin 2.6 g/dL (3.4-5.0) L 08/12/22 15:35 Globulin 4.1 g/dL (2.5-4.5) 08/12/22 15:35 Albumin/Globulin Ratio 0.6 Ratio (1.1-2.1) L 08/12/22 15:35 Specimen Type Clean catch urine 08/12/22 17:21 Urine Color Yellow (YELLOW) 08/12/22 17:21 Urine Appearance Clear (CLEAR) 08/12/22 17:21 Urine pH 5.0 (5.0 - 8.0) 08/12/22 17:21 Ur Specific [place] 1.010 (1.000-1.030) 08/12/22 17:21 Urine Protein 1+ (NEGATIVE) 08/12/22 17:21 Urine Glucose (UA) Negative (NEGATIVE) 08/12/22 17:21 Urine Ketones Negative (NEGATIVE) 08/12/22 17:21 Urine Blood 2+ (NEGATIVE) 08/12/22 17:21 Urine Nitrite Negative (NEGATIVE) 08/12/22 17:21 Urine Bilirubin Negative (NEGATIVE) 08/12/22 17:21 Urine Urobilinogen Normal (NORMAL) 08/12/22 17:21 Ur Leukocyte Esterase 1+ (NEGATIVE) 08/12/22 17:21 Urine RBC 5-10 /HPF (0-3) A 08/12/22 17:21 Urine WBC 3-5 /HPF (0-5) 08/12/22 17:21 Ur Squamous Epith Cells Few /HPF (NEGATIVE) 08/12/22 17:21 Urine Bacteria Trace /HPF (NEGATIVE) 08/12/22 17:21 Urine Mucus Rare /HPF (NEGATIVE) 08/12/22 17:21 Ur Culture Indicated? No/not indicated 08/12/22 17:21 Opioid Opioid Risk Tool Age (Javier box if 16-45): No History of Preadolescent Sexual Abuse: No Total: 0 Total Score Risk Category: Low Risk Copyright: Byron JUSTIN predicting aberrant behaviors Discharge Plan Diagnosis Discharge Problem: Cellulitis of both feet, Bilateral foot pain Discharge Plan Patient Disposition: 01 HOME, SELF-CARE Condition: Stable Prescriptions: New clindamycin HCl 300 mg capsule 600 mg PO Q8H MDD 6 Qty: 40 0RF hydrocodone-acetaminophen 7.5-325 mg tablet 1 tab PO BID MDD 2 PRN (Reason: pain) Qty: 10 0RF No Action buspirone 5 mg Tablet 5 mg PO DAILY trazodone 50 mg Tablet 50 mg PO HS aspirin 81 mg Tablet,Delayed Release (Dr/Ec) 81 mg PO DAILY pantoprazole [Protonix] 40 mg Tablet,Delayed Release (Dr/Ec) 40 mg PO BID gabapentin 300 mg Capsule 600 mg PO BID rosuvastatin [Crestor] 5 mg Tablet 5 mg PO DAILY duloxetine [Cymbalta] 60 mg Capsule,Delayed Release(Dr/Ec) 60 mg PO DAILY solifenacin [Vesicare] 10 mg Tablet 10 mg PO DAILY Centrum Silver 0.4 mg-300 mcg- 250 mcg Tablet 1 tab PO DAILY calcium carbonate-vitamin D3 [Calcium 600 + D(3)] 600 mg-10 mcg (400 unit) Tablet 1 tab PO DAILY nebivolol [Bystolic] 5 mg Tablet 5 mg PO QDAY loratadine 10 mg Capsule 10 mg PO QDAY clindamycin HCl 300 mg capsule 300 mg PO TID 7 Days Qty: 21 0RF Discharge Comment: FU WITH PCP IN 3-5 DAYS Health Concerns: Post Hospitalization: new medications and changes needed to prevent readmission or further decline. Pt educated and given instructions on all concerns. Care Plan Goals: GET HOME HEALTH FOR PT/OT Plan of Treatment: Continue with present treatment and follow up plan. Pt is to keep follow up appointment as instructed and take medications as ordered. Orders to Discharge Patient Discharge Orders: Discharge (Routine); Ordered 08/12/22 Ordered By: Alireza Alford Follow ups/Referrals Follow ups/Referrals: PRIMITIVO HATFIELD V [Primary Care Provider] - 3 days Instructions Instructions: Cellulitis, Adult, [id number], Foot Pain
[2022-08-12 15:48] LABS: BASOPHILS # (AUTO) 0.1 X10^3/uL (0.0-0.1); BASOPHILS % (AUTO) 1.1 % (0.2-1.0); EOSINOPHILS # (AUTO) 0.2 x10^3/uL (0.0-0.2); EOSINOPHILS % (AUTO) 1.9 % (0.9-2.9); HEMATOCRIT 28.4 % (36.0-47.0); HEMOGLOBIN 9.8 g/dL (12.0-16.0); LYMPHOCYTES # (AUTO) 1.3 X10^3/uL (1.3-2.9); LYMPHOCYTES % (AUTO) 12.3 % (21.0-51.0); MEAN CORPUSCULAR HEMOGLOBIN 31.1 pg (27.0-34.0); MEAN CORPUSCULAR HGB CONC 34.6 g/dL (33.0-35.0); MEAN CORPUSCULAR VOLUME 89.9 fL (80.0-100.0); MEAN PLATELET VOLUME 7.8 fL (7.4-11.0); MONOCYTES # (AUTO) 1.3 x10^3/uL (0.3-0.8); MONOCYTES % (AUTO) 12.5 % (0.0-13.0); NEUTROPHILS # (AUTO) 7.7 x10^3/uL (2.2-4.8); NEUTROPHILS % (AUTO) 72.2 % (42.0-75.0); RED BLOOD COUNT 3.16 X10^6/uL (3.5-5.4); RED CELL DISTRIBUTION WIDTH 13.6 % (11.6-16.5); WHITE BLOOD COUNT 10.7 X10^3/uL (3.6-10.0)
[2022-08-12 16:01] LABS: ALBUMIN 2.6 g/dL (3.4-5.0); CALCIUM 8.8 mg/dL (8.5-10.1); COR CA(FOR HYPOALB) 9.9 mg/dL (8.5-10.1); CREATININE 1.17 mg/dL (0.55-1.02); TOTAL PROTEIN 6.7 g/dL (6.4-8.2)
[2022-08-12 16:04] LABS: LACTIC ACID 0.7 mmol/L (0.4-2.0)
[2022-08-12] MEDS ORDERED: NORCO 10/325 TAB PO ONE (17:24)
[2022-08-12] MEDS ORDERED: ROCEPHIN VIAL 1 GRAM IM ONE (17:24)
[2022-08-12] MEDS ORDERED: NORCO 10/325 TAB ONE (17:27)
[2022-08-12] MEDS ORDERED: ROCEPHIN VIAL 1 GRAM ONE (17:27)
[2022-08-12 17:29] LABS: BILIRUBIN,URINE NEGATIVE (NEGATIVE); BLOOD/HEMOGLOBIN,URINE 2+ (NEGATIVE); GLUCOSE, URINE NEGATIVE (NEGATIVE); KETONES,URINE NEGATIVE (NEGATIVE); LEUKOCYTE ESTERASE ,URINE 1+ (NEGATIVE); NITRITES,URINE NEGATIVE (NEGATIVE); PROTEIN,URINE 1+ (NEGATIVE); UROBILINOGEN,URINE NORMAL (NORMAL)
[2022-08-12 17:31] LABS: APPEARANCE,URINE CLEAR (CLEAR); COLOR,URINE YELLOW (YELLOW)
[2022-08-12 17:38] LABS: BACTERIA,URINE TRACE /HPF (NEGATIVE); SQUAMOUS EPITHELIAL CELL,UR FEW /HPF (NEGATIVE)
--- NOTE | 2022-08-12 22:35 | DR.EXTPAIN ---
HPI Time seen Time Seen by Provider: 08/12/22 14:29 PCP Primary Care Physician: DISHA BURNHAM Complaint/Symptoms Chief Complaint Doctor Comments: BILATERAL CELLULITIS OF FEET, NOT RESPONDING TO OUT PATIENT TREATMENT. Chief Complaint:: PT WAS RECENTLY ADMITTED AND D/C FROM [facility] FOR CELLULITIS AT BILAT FEET; PRESENTS BACK TO ER VIA EMS D/T SHE CONT TO HAVE PAIN, SWELLING AND REDNESS, DIFFICULTY WALKING. HER FAMILY WANTS PT READMITTED FOR IV ANTIBIOTICS D/T ORAL ATB ARE NOT WORKING COVID-19 Coronavirus risk:travel/contact w/high risk person: No Has patient experienced Coronavirus symptoms: No Source History Provided: EMS Mode of arrival Mode of Arrival: EMS Timing Onset of Chief Complaint: 08/12/22 PMH PMH Past Medical History: Yes Past Medical History: Coronary Artery Disease Past Surgical History: Yes Surgical History: Angioplasty/Stents, CABG/Valve Surgery, Cholecystectomy, Hysterectomy, Ortho Surgery, Tonsillectomy and Other Family History History of Family Medical Conditions: Yes Family Medical History: Diabetes Mellitus, Coronary Artery Disease and Hypertension Social History Does patient currently use any type of tobacco product: No Have you used tobacco products in the last 12 months: No Type of Tobacco Use: None Does any household member use tobacco: No Alcohol Use: None Do you use any recreational Drugs:: No Lives With: Alone Lives Where: Home Travel Risk Coronavirus risk:travel/contact w/high risk person: No Has patient experienced Coronavirus symptoms: No Infectious screening In the last 2 months have you had wt loss of >10#?: NO Have you had fever, night sweats or hemotysis?: No Have you traveled outside the country in the last 6 months?: No Isolation: Standard ROS Review of Systems Constitutional: Other (BILATERAL FEET PAIN WITH CELLULITIS) Eyes: No Symptoms Reported ENTM: No Symptoms Reported Respiratoy: No Symptoms Reported Cardiovascular: No Symptoms Reported Gastrointestinal/Abdominal: No Symptoms Reported Genitourinary: No Symptoms Reported Neurological: No Symptoms Reported Musculoskeletal: Foot (BILATERAL FOOT PAIN AND SWELLING) Integumentary: No Symptoms Reported Hematologic/Lymphatic: No Symptoms Reported Endocrine: No Symptoms Reported Psychiatric: No Symptoms Reported PE Vital Signs Vitals: Temperature 98.7 F Pulse Rate 97 Respiratory Rate 20 Blood Pressure [Left Arm] 141/67 Blood Pressure 123/57 O2 Sat by Pulse Oximetry 96 General Limitations: Physical Limitation (CANNOT AMBULATE) General Appearance: In Distress (MODERATE DISTRESS) Head Head Exam: Normal Inspection, Atraumatic and Normocephalic Eyes Eye exam: Normal Appearance, PERRL and EOMI ENT ENT Exam: Normal Exam and Normal Oropharynx Neck Neck Exam: Normal Inspection and Full ROM Chest Chest Inspection: Normal Inspection and Symmetric Chest Wall Rise Respiratory Respiratory Exam: Normal Lung Sounds Bilat Respiratory Exam: Bilateral: Clear to Auscultation Cardiovascular Cardiovascular Exam: Regular Rate and Normal Rhythm Abdominal Exam Abdominal Exam: Normal Inspection, Normal Bowel Sounds and Soft Extremities Extremities Exam: Normal Inspection and Full ROM Upper Extremities Shoulder Exam: Normal Inspection and Full ROM Arm Exam: Normal Inspection Elbow Exam: Normal Inspection Forearm Exam: Normal Inspection Hand Exam: Normal Inspection Neuromotor Exam: Normal Exam Neurosensory Exam: Normal Exam Lower Extremities Hip/Pelvis Exam: Normal Inspection Upper Leg Exam: Normal Inspection Knee Exam: Normal Inspection Lower Leg Exam: Normal Inspection Ankle Exam: Normal Inspection Foot/Toe Exam: Tenderness, Swelling and Other (BILATERAL FEET) Gait Exam: Not Tested/Not Observed Back Back Exam: Normal Inspection and Full ROM Neurological Neurological Exam: Oriented X3 and CN II-XII Intact Psychiatric Psychiatric Exam: Depressed Skin Skin Exam: Warm and Dry MDM Differential Diagnosis Differential Diagnosis: Other (BILATERAL FOOT CELLULITIS.FAILURE TO THRIVE) COURSE Treatment Treatment: PATIENT WAS GIVEN HYDROCODONE 10/325 FOR PAIN WITH SONE RELIEF. LABS WERE RELATIVELY NORMAL. HER FAMILY STATED THAT SHE WAS COMPLETELY NON AMBULATORY. DR COSME WAS CALLEDAT 2224 AND HE STATED THAT HE WOULD ACCEPT THE PATIENT TO ADMISSION. GIVE ONE GRAM OF VANCOMYCIN IN THE ER AND HAVE PHARMACY TO DOSE. THIS PATIENT WAS INITIALLY SCHEDULED TO BE DISCHARGED BUT THE FAMILY STATED THAT HER FEET WERE INCREASINGLY SWELLING AND PATIENT WAS HAVING INCRESASED PAIN. THEY HAD CONSULTED WITH THE [facility] IN [place] AND THEY WOULD HAVE A BED AVAILABLE ON MONDAY. PATIENT WAS REFERRED TO OBSERVATION. [facility] Labs Reviewed Laboratory Results Reviewed?: Yes Result Diagrams: 08/12/22 15:35 08/12/22 15:35 Laboratory: WBC 10.7 X10^3/uL (3.6-10.0) H 08/12/22 15:35 RBC 3.16 X10^6/uL (3.5-5.4) L 08/12/22 15:35 Hgb 9.8 g/dL (12.0-16.0) L 08/12/22 15:35 Hct 28.4 % (36.0-47.0) L 08/12/22 15:35 MCV 89.9 fL (80.0-100.0) 08/12/22 15:35 MCH 31.1 pg (27.0-34.0) 08/12/22 15:35 MCHC 34.6 g/dL (33.0-35.0) 08/12/22 15:35 RDW 13.6 % (11.6-16.5) 08/12/22 15:35 Plt Count 299 X10^3/uL (150.0-450.0) 08/12/22 15:35 MPV 7.8 fL (7.4-11.0) 08/12/22 15:35 Neut % (Auto) 72.2 % (42.0-75.0) 08/12/22 15:35 Lymph % (Auto) 12.3 % (21.0-51.0) L 08/12/22 15:35 [place] % (Auto) 12.5 % (0.0-13.0) 08/12/22 15:35 Eos % (Auto) 1.9 % (0.9-2.9) 08/12/22 15:35 Baso % (Auto) 1.1 % (0.2-1.0) H 08/12/22 15:35 Neut # (Auto) 7.7 x10^3/uL (2.2-4.8) H 08/12/22 15:35 Lymph # (Auto) 1.3 X10^3/uL (1.3-2.9) 08/12/22 15:35 [place] # (Auto) 1.3 x10^3/uL (0.3-0.8) H 08/12/22 15:35 Eos # (Auto) 0.2 x10^3/uL (0.0-0.2) 08/12/22 15:35 Baso # (Auto) 0.1 X10^3/uL (0.0-0.1) 08/12/22 15:35 Absolute Nucleated RBC 0.0 /100WBC 08/12/22 15:35 Sodium 136 mmol/L (136-145) 08/12/22 15:35 Corrected Sodium 136 mmol/L (136-145) 08/12/22 15:35 Potassium 3.8 mmol/L (3.5-5.1) 08/12/22 15:35 Chloride 102 mmol/L (98-107) 08/12/22 15:35 Carbon Dioxide 27.0 mmol/L (21-32) 08/12/22 15:35 BUN 17 mg/dL (7-18) 08/12/22 15:35 Creatinine 1.17 mg/dL (0.55-1.02) H 08/12/22 15:35 Est GFR (MDRD) Af Amer 57 (>60) L 08/12/22 15:35 Est GFR (MDRD) Non-Af 47 (>60) L 08/12/22 15:35 Glucose 116 mg/dL (65-99) H 08/12/22 15:35 Lactic Acid 0.7 mmol/L (0.4-2.0) 08/12/22 15:35 Calcium 8.8 mg/dL (8.5-10.1) 08/12/22 15:35 Corrected Calcium 9.9 mg/dL (8.5-10.1) 08/12/22 15:35 Total Bilirubin 0.30 mg/dL (0.2-1.0) 08/12/22 15:35 AST 19 Units/L (15-37) 08/12/22 15:35 ALT 19 Units/L (12-78) 08/12/22 15:35 Alkaline Phosphatase 76 Units/L (46-116) 08/12/22 15:35 Total Protein 6.7 g/dL (6.4-8.2) 08/12/22 15:35 Albumin 2.6 g/dL (3.4-5.0) L 08/12/22 15:35 Globulin 4.1 g/dL (2.5-4.5) 08/12/22 15:35 Albumin/Globulin Ratio 0.6 Ratio (1.1-2.1) L 08/12/22 15:35 Specimen Type Clean catch urine 08/12/22 17:21 Urine Color Yellow (YELLOW) 08/12/22 17:21 Urine Appearance Clear (CLEAR) 08/12/22 17:21 Urine pH 5.0 (5.0 - 8.0) 08/12/22 17:21 Ur Specific [place] 1.010 (1.000-1.030) 08/12/22 17:21 Urine Protein 1+ (NEGATIVE) 08/12/22 17:21 Urine Glucose (UA) Negative (NEGATIVE) 08/12/22 17:21 Urine Ketones Negative (NEGATIVE) 08/12/22 17:21 Urine Blood 2+ (NEGATIVE) 08/12/22 17:21 Urine Nitrite Negative (NEGATIVE) 08/12/22 17:21 Urine Bilirubin Negative (NEGATIVE) 08/12/22 17:21 Urine Urobilinogen Normal (NORMAL) 08/12/22 17:21 Ur Leukocyte Esterase 1+ (NEGATIVE) 08/12/22 17:21 Urine RBC 5-10 /HPF (0-3) A 08/12/22 17:21 Urine WBC 3-5 /HPF (0-5) 08/12/22 17:21 Ur Squamous Epith Cells Few /HPF (NEGATIVE) 08/12/22 17:21 Urine Bacteria Trace /HPF (NEGATIVE) 08/12/22 17:21 Urine Mucus Rare /HPF (NEGATIVE) 08/12/22 17:21 Ur Culture Indicated? No/not indicated 08/12/22 17:21 Opioid Opioid Risk Tool Age (Javier box if 16-45): No History of Preadolescent Sexual Abuse: No Total: 0 Total Score Risk Category: Low Risk Copyright: Byron JUSTIN predicting aberrant behaviors Discharge Plan Diagnosis Discharge Problem: Cellulitis of both feet, Bilateral foot pain Discharge Plan Patient Disposition: HOME, SELF-CARE Condition: Stable Prescriptions: New clindamycin HCl 300 mg capsule 600 mg PO Q8H MDD 6 Qty: 40 0RF hydrocodone-acetaminophen 7.5-325 mg tablet 1 tab PO BID MDD 2 PRN (Reason: pain) Qty: 10 0RF No Action buspirone 5 mg Tablet 5 mg PO DAILY trazodone 50 mg Tablet 50 mg PO HS aspirin 81 mg Tablet,Delayed Release (Dr/Ec) 81 mg PO DAILY pantoprazole [Protonix] 40 mg Tablet,Delayed Release (Dr/Ec) 40 mg PO BID gabapentin 300 mg Capsule 600 mg PO BID rosuvastatin [Crestor] 5 mg Tablet 5 mg PO DAILY duloxetine [Cymbalta] 60 mg Capsule,Delayed Release(Dr/Ec) 60 mg PO DAILY solifenacin [Vesicare] 10 mg Tablet 10 mg PO DAILY Centrum Silver 0.4 mg-300 mcg- 250 mcg Tablet 1 tab PO DAILY calcium carbonate-vitamin D3 [Calcium 600 + D(3)] 600 mg-10 mcg (400 unit) Tablet 1 tab PO DAILY nebivolol [Bystolic] 5 mg Tablet 5 mg PO QDAY loratadine 10 mg Capsule 10 mg PO QDAY clindamycin HCl 300 mg capsule 300 mg PO TID 7 Days Qty: 21 0RF Discharge Comment: FU WITH PCP IN 3-5 DAYS Health Concerns: Post Hospitalization: new medications and changes needed to prevent readmission or further decline. Pt educated and given instructions on all concerns. Care Plan Goals: GET HOME HEALTH FOR PT/OT Plan of Treatment: Continue with present treatment and follow up plan. Pt is to keep follow up appointment as instructed and take medications as ordered. Orders to Discharge Patient Discharge Orders: Discharge (Routine); Ordered 08/12/22 Ordered By: Alireza Alford Follow ups/Referrals Follow ups/Referrals: PRIMITIVO HATFIELD V [Primary Care Provider] - 3 days Instructions Instructions: Cellulitis, Adult, [id number], Foot Pain
[2022-08-12] MEDS ORDERED: ZOFRAN INJ 4 MG VIAL IVP PRN (22:50)
[2022-08-12] MEDS ORDERED: PHARMACY CONSULT - VANCOMYCIN XX SCH (23:00)
[2022-08-13] MEDS ORDERED: VANCOMYCIN IV *PREMIX 1.5 G/300 ML BAG 1.5 G/300 ML PIGGYBACK IV ONE
[2022-08-13 00:05] VITALS: BMI 28.4
[2022-08-13] MEDS: NEURONTIN CAP 300 MG PO SCH ×3 (00:12→20:36)
[2022-08-13] MEDS: DESYREL PO SCH ×2 (00:12→20:36)
[2022-08-13] MEDS: PROTONIX INJ 40 MG VIAL IVP SCH ×2 (00:16→20:36)
[2022-08-13] MEDS: NS 1,000 ML IV 1,000 ML IV SCH ×2 (00:22→18:12)
[2022-08-13 06:21] LABS: BASOPHILS # (AUTO) 0.1 X10^3/uL (0.0-0.1); BASOPHILS % (AUTO) 0.6 % (0.2-1.0); EOSINOPHILS # (AUTO) 0.4 x10^3/uL (0.0-0.2); EOSINOPHILS % (AUTO) 3.8 % (0.9-2.9); HEMATOCRIT 31.8 % (36.0-47.0); LYMPHOCYTES # (AUTO) 1.9 X10^3/uL (1.3-2.9); LYMPHOCYTES % (AUTO) 20.7 % (21.0-51.0); MEAN CORPUSCULAR HEMOGLOBIN 31.1 pg (27.0-34.0); MEAN CORPUSCULAR HGB CONC 34.5 g/dL (33.0-35.0); MEAN CORPUSCULAR VOLUME 90.2 fL (80.0-100.0); MEAN PLATELET VOLUME 8.1 fL (7.4-11.0); MONOCYTES # (AUTO) 1.2 x10^3/uL (0.3-0.8); MONOCYTES % (AUTO) 12.5 % (0.0-13.0); NEUTROPHILS # (AUTO) 5.8 x10^3/uL (2.2-4.8); NEUTROPHILS % (AUTO) 62.4 % (42.0-75.0); RED BLOOD COUNT 3.53 X10^6/uL (3.5-5.4); RED CELL DISTRIBUTION WIDTH 13.7 % (11.6-16.5); WHITE BLOOD COUNT 9.3 X10^3/uL (3.6-10.0)
[2022-08-13 06:46] LABS: ALANINE AMINOTRANSFERASE 22 Units/L (12-78); ALBUMIN 2.8 g/dL (3.4-5.0); ALKALINE PHOSPHATASE 87 Units/L (46-116); ASPARTATE AMINO TRANSFERASE 23 Units/L (15-37); BLOOD UREA NITROGEN 18 mg/dL (7-18); CALCIUM 9.1 mg/dL (8.5-10.1); CARBON DIOXIDE 26.1 mmol/L (21-32); CHLORIDE 103 mmol/L (98-107); COR CA(FOR HYPOALB) 10.1 mg/dL (8.5-10.1); CREATININE 1.23 mg/dL (0.55-1.02); SODIUM 139 mmol/L (136-145); TOTAL PROTEIN 7.6 g/dL (6.4-8.2); eGFR NON BLACK RACES 44 (>60)
[2022-08-13] MEDS ORDERED: SOLIFENACIN 10 MG PO SCH (09:00)
[2022-08-13] MEDS ORDERED: CALCIUM CARBONATE VITAMIN D3 PO SCH (09:00)
[2022-08-13] MEDS ORDERED: NEBIVOLOL 5 MG PO SCH (09:00)
[2022-08-13] MEDS ORDERED: [UNRECOGNIZED DRUG - OTHER] PO SCH (09:00)
[2022-08-13] MEDS: DETROL LA 4 MG CAP EXT REL PO SCH (09:33)
[2022-08-13] MEDS: CLARITIN PO SCH (09:33)
[2022-08-13] MEDS: CRESTOR TAB 10 MG PO SCH (09:33)
[2022-08-13] MEDS: ASPIRIN EC 81 MG PO SCH (09:33)
[2022-08-13] MEDS: BUSPAR PO SCH (09:33)
[2022-08-13] MEDS: OSCAL+D or CALTRATE+D PO SCH (09:34)
[2022-08-13] MEDS: ZEBETA TAB 5 MG PO SCH (09:34)
[2022-08-13] MEDS: CYMBALTA PO SCH (09:34)
[2022-08-13] MEDS: DEMEROL INJ IVP PRN ×2 (09:35→20:36)
--- NOTE | 2022-08-13 14:02 | RAD ---
FOOT, RIGHTHISTORY: cellulitis both feet failure to thrive both feet edema painStudy: 3 views of the right foot.Comparison:NoneFindings:No acute fracture or dislocation. Joint spaces are well aligned. No significant soft tissue swelling or injury can be seen.IMPRESSION:1. No acute abnormalities in the right foot.Electronically signed by: KANE SELF (Aug 13, 2022 13:53:09)
[2022-08-13] MEDS: COLACE CAP 100 MG PO SCH (20:36)
[2022-08-14] MEDS: VANCOMYCIN IV *PREMIX 750 mg/150 ML BAG 750 MG/150 ML PIGGYBACK IV SCH (00:03)
[2022-08-14] MEDS: NS 1,000 ML IV 1,000 ML IV SCH ×3 (03:57→19:10)
[2022-08-14 06:14] LABS: BASOPHILS # (AUTO) 0.1 X10^3/uL (0.0-0.1); EOSINOPHILS # (AUTO) 0.3 x10^3/uL (0.0-0.2); LYMPHOCYTES # (AUTO) 1.5 X10^3/uL (1.3-2.9); MONOCYTES # (AUTO) 0.7 x10^3/uL (0.3-0.8); NEUTROPHILS # (AUTO) 4.3 x10^3/uL (2.2-4.8); WHITE BLOOD COUNT 6.9 X10^3/uL (3.6-10.0)
[2022-08-14 06:21] LABS: EOSINOPHILS % (AUTO) 4.7 % (0.9-2.9); HEMATOCRIT 27.1 % (36.0-47.0); HEMOGLOBIN 9.4 g/dL (12.0-16.0); LYMPHOCYTES % (AUTO) 21.3 % (21.0-51.0); MEAN CORPUSCULAR HEMOGLOBIN 31.1 pg (27.0-34.0); MEAN CORPUSCULAR HGB CONC 34.7 g/dL (33.0-35.0); MEAN CORPUSCULAR VOLUME 89.7 fL (80.0-100.0); MONOCYTES % (AUTO) 10.6 % (0.0-13.0); NEUTROPHILS % (AUTO) 62.4 % (42.0-75.0); RED BLOOD COUNT 3.02 X10^6/uL (3.5-5.4); RED CELL DISTRIBUTION WIDTH 13.4 % (11.6-16.5)
[2022-08-14 06:33] LABS: ALANINE AMINOTRANSFERASE 31 Units/L (12-78); ALBUMIN 2.3 g/dL (3.4-5.0); ALKALINE PHOSPHATASE 76 Units/L (46-116); ASPARTATE AMINO TRANSFERASE 35 Units/L (15-37); BLOOD UREA NITROGEN 13 mg/dL (7-18); CALCIUM 8.6 mg/dL (8.5-10.1); CARBON DIOXIDE 24.6 mmol/L (21-32); CHLORIDE 108 mmol/L (98-107); CREATININE 1.02 mg/dL (0.55-1.02); SODIUM 141 mmol/L (136-145); TOTAL PROTEIN 6.3 g/dL (6.4-8.2); eGFR NON BLACK RACES 55 (>60)
--- NOTE | 2022-08-14 07:07 | RAD ---
HISTORYCellulitisSTUDYLeft foot three viewsCOMPARISONNoneFINDINGSThere is no evidence for fracture or dislocation or localized articular deformity or bone destruction. Soft tissue swelling is nonspecific.IMPRESSIONNo acute osseous or joint space abnormality demonstrated.Electronically signed by: MIRIAM ERAZO (Aug 14, 2022 07:06:38)
[2022-08-14] MEDS: MILK OF MAGNESIA PO SCH (09:21)
[2022-08-14] MEDS: BUSPAR PO SCH (09:22)
[2022-08-14] MEDS: CRESTOR TAB 10 MG PO SCH (09:22)
[2022-08-14] MEDS: NEURONTIN CAP 300 MG PO SCH ×2 (09:22→20:21)
[2022-08-14] MEDS: ZEBETA TAB 5 MG PO SCH (09:23)
[2022-08-14] MEDS: ASPIRIN EC 81 MG PO SCH (09:23)
[2022-08-14] MEDS: DETROL LA 4 MG CAP EXT REL PO SCH (09:24)
[2022-08-14] MEDS: CYMBALTA PO SCH (09:24)
[2022-08-14] MEDS: OSCAL+D or CALTRATE+D PO SCH (09:50)
[2022-08-14] MEDS: CLARITIN PO SCH (09:51)
[2022-08-14] MEDS: DESYREL PO SCH (20:21)
[2022-08-14] MEDS: PROTONIX INJ 40 MG VIAL IVP SCH (20:21)
[2022-08-14] MEDS: COLACE CAP 100 MG PO SCH (20:21)
[2022-08-14] MEDS: DEMEROL INJ IVP PRN (20:22)
[2022-08-15] MEDS: VANCOMYCIN IV *PREMIX 750 mg/150 ML BAG 750 MG/150 ML PIGGYBACK IV SCH (00:10)
[2022-08-15] MEDS: NS 1,000 ML IV 1,000 ML IV SCH ×3 (06:20→23:37)
[2022-08-15 06:32] LABS: BASOPHILS # (AUTO) 0.1 X10^3/uL (0.0-0.1); BASOPHILS % (AUTO) 1.5 % (0.2-1.0); EOSINOPHILS # (AUTO) 0.3 x10^3/uL (0.0-0.2); HEMATOCRIT 29.7 % (36.0-47.0); HEMOGLOBIN 10.1 g/dL (12.0-16.0); LYMPHOCYTES # (AUTO) 1.6 X10^3/uL (1.3-2.9); LYMPHOCYTES % (AUTO) 23.4 % (21.0-51.0); MEAN CORPUSCULAR HEMOGLOBIN 30.9 pg (27.0-34.0); MEAN CORPUSCULAR HGB CONC 34.1 g/dL (33.0-35.0); MEAN CORPUSCULAR VOLUME 90.6 fL (80.0-100.0); MEAN PLATELET VOLUME 7.9 fL (7.4-11.0); MONOCYTES # (AUTO) 0.6 x10^3/uL (0.3-0.8); MONOCYTES % (AUTO) 9.2 % (0.0-13.0); NEUTROPHILS # (AUTO) 4.2 x10^3/uL (2.2-4.8); NEUTROPHILS % (AUTO) 61.9 % (42.0-75.0); RED BLOOD COUNT 3.28 X10^6/uL (3.5-5.4); RED CELL DISTRIBUTION WIDTH 13.5 % (11.6-16.5); WHITE BLOOD COUNT 6.9 X10^3/uL (3.6-10.0)
[2022-08-15 06:47] LABS: ALANINE AMINOTRANSFERASE 39 Units/L (12-78); ALBUMIN 2.5 g/dL (3.4-5.0); ALKALINE PHOSPHATASE 84 Units/L (46-116); ASPARTATE AMINO TRANSFERASE 39 Units/L (15-37); BLOOD UREA NITROGEN 11 mg/dL (7-18); CHLORIDE 108 mmol/L (98-107); COR CA(FOR HYPOALB) 10.2 mg/dL (8.5-10.1); CREATININE 1.03 mg/dL (0.55-1.02); SODIUM 143 mmol/L (136-145); TOTAL PROTEIN 6.9 g/dL (6.4-8.2); eGFR NON BLACK RACES 55 (>60)
[2022-08-15] MEDS ORDERED: VANCOMYCIN IV *PREMIX 750 mg/150 ML BAG 750 MG/150 ML PIGGYBACK IV SCH (09:00)
[2022-08-15] MEDS: BUSPAR PO SCH (09:18)
[2022-08-15] MEDS: ASPIRIN EC 81 MG PO SCH (09:18)
[2022-08-15] MEDS: CRESTOR TAB 10 MG PO SCH (09:19)
[2022-08-15] MEDS: OSCAL+D or CALTRATE+D PO SCH (09:20)
[2022-08-15] MEDS: MILK OF MAGNESIA PO SCH (09:20)
[2022-08-15] MEDS: NEURONTIN CAP 300 MG PO SCH ×2 (09:21→20:12)
[2022-08-15] MEDS: CYMBALTA PO SCH (09:21)
[2022-08-15] MEDS: CLARITIN PO SCH (09:23)
[2022-08-15] MEDS: ZEBETA TAB 5 MG PO SCH (09:26)
[2022-08-15] MEDS: DETROL LA 4 MG CAP EXT REL PO SCH (09:26)
[2022-08-15] MEDS: DEMEROL INJ IVP PRN ×2 (09:31→19:18)
--- NOTE | 2022-08-15 10:15 | W.DIS.FURT ---
Summary of Discharge Discharge Summary of Date Date of Exam: 08/09/22 Admission Date Date of Admission: 08/06/22 Admission Diagnosis Patient Problems (Updated 08/12/22 @ 22:50 by Alireza Alford) Bilateral foot pain (Acute) M79.671, M79.672 Adult failure to thrive (Acute) R62.7 Cellulitis of both feet (Acute) L03.115, L03.116 Hospital Course: Pt is a 81 year old female past medical history of CAD, Hypertension, Neuropathy, admitted for cellulitis. Her hospital/treatment course included IVF NS@75ml/h and IV antibiotics Clindamycin. Pt responded well to treatment. Her erythema significantly improved and leukocytosis trended down back to normal limits. She was discharged home in stable condition with rx clindamycin to finish antibiotic course. Instructed to follow up with pcp in 1 week. Vital Signs: Vital Signs (72 hours) 08/12/22 14:27 08/12/22 15:05 08/12/22 15:26 Temperature 98.7 F Pulse Rate 98 H 98 H 96 H Pulse Rate [Brachial] Respiratory Rate 20 Blood Pressure 124/61 Blood Pressure [Left Arm] Blood Pressure [Right Arm] O2 Sat by Pulse Oximetry 98 95 Oxygen Delivery Method Room Air 08/12/22 15:30 08/12/22 15:30 08/12/22 15:45 Temperature Pulse Rate 97 H 97 H Pulse Rate [Brachial] Respiratory Rate Blood Pressure 123/57 Blood Pressure [Left Arm] Blood Pressure [Right Arm] O2 Sat by Pulse Oximetry 95 96 Oxygen Delivery Method 08/12/22 17:40 08/12/22 23:16 08/12/22 23:20 Temperature 98.8 F Pulse Rate Pulse Rate [Brachial] 91 H Respiratory Rate 20 20 Blood Pressure Blood Pressure [Left Arm] 117/63 109/61 Blood Pressure [Right Arm] O2 Sat by Pulse Oximetry 95 Oxygen Delivery Method Room Air 08/12/22 23:20 08/13/22 04:00 08/13/22 07:00 Temperature 97.5 F L Pulse Rate Pulse Rate [Brachial] 80 Respiratory Rate 20 Blood Pressure Blood Pressure [Left Arm] 113/56 Blood Pressure [Right Arm] O2 Sat by Pulse Oximetry 94 L Oxygen Delivery Method Room Air Room Air Room Air 08/13/22 08:00 08/13/22 09:35 08/13/22 12:00 Temperature 97.7 F 97.8 F Pulse Rate Pulse Rate [Brachial] 83 75 Respiratory Rate 22 22 20 Blood Pressure Blood Pressure [Left Arm] 125/59 115/58 Blood Pressure [Right Arm] O2 Sat by Pulse Oximetry 95 96 Oxygen Delivery Method Room Air Room Air 08/13/22 10:05 08/13/22 16:00 08/13/22 19:00 Temperature 98 F Pulse Rate Pulse Rate [Brachial] 81 Respiratory Rate 18 20 Blood Pressure Blood Pressure [Left Arm] 128/60 Blood Pressure [Right Arm] O2 Sat by Pulse Oximetry 97 Oxygen Delivery Method Room Air Room Air 08/13/22 20:00 08/13/22 20:36 08/13/22 21:06 Temperature 98.9 F Pulse Rate Pulse Rate [Brachial] 85 Respiratory Rate 20 18 18 Blood Pressure Blood Pressure [Left Arm] 134/62 Blood Pressure [Right Arm] O2 Sat by Pulse Oximetry 97 Oxygen Delivery Method Room Air 08/13/22 23:44 08/14/22 04:00 08/14/22 07:00 Temperature 98.6 F 98.4 F Pulse Rate Pulse Rate [Brachial] 87 82 Respiratory Rate 20 20 Blood Pressure Blood Pressure [Left Arm] Blood Pressure [Right Arm] 125/56 118/58 O2 Sat by Pulse Oximetry 96 98 Oxygen Delivery Method Room Air Room Air Room Air 08/14/22 07:57 08/14/22 12:00 08/14/22 16:00 Temperature 98.6 F 98.4 F 98.6 F Pulse Rate Pulse Rate [Brachial] 90 85 92 H Respiratory Rate 20 20 20 Blood Pressure Blood Pressure [Left Arm] Blood Pressure [Right Arm] 148/71 146/70 123/86 O2 Sat by Pulse Oximetry 94 L 94 L 93 L Oxygen Delivery Method Room Air Room Air Room Air 08/14/22 19:00 08/14/22 19:48 08/14/22 20:22 Temperature 98.3 F Pulse Rate Pulse Rate [Brachial] 96 H Respiratory Rate 20 20 Blood Pressure Blood Pressure [Left Arm] Blood Pressure [Right Arm] 157/71 O2 Sat by Pulse Oximetry 95 Oxygen Delivery Method Room Air 08/14/22 20:52 08/14/22 23:38 08/15/22 04:00 Temperature 97.8 F 97.6 F Pulse Rate Pulse Rate [Brachial] 100 H 99 H Respiratory Rate 20 20 18 Blood Pressure Blood Pressure [Left Arm] Blood Pressure [Right Arm] 130/65 139/69 O2 Sat by Pulse Oximetry 95 95 Oxygen Delivery Method Room Air 08/15/22 08:00 08/15/22 09:07 08/15/22 09:31 Temperature 98.3 F Pulse Rate Pulse Rate [Brachial] 114 H Respiratory Rate 20 20 Blood Pressure Blood Pressure [Left Arm] Blood Pressure [Right Arm] 184/90 140/72 O2 Sat by Pulse Oximetry 97 Oxygen Delivery Method Room Air Labs: Laboratory Last Values WBC 6.9 X10^3/uL (3.6-10.0) 08/15/22 06:11 RBC 3.28 X10^6/uL (3.5-5.4) L 08/15/22 06:11 Hgb 10.1 g/dL (12.0-16.0) L 08/15/22 06:11 Hct 29.7 % (36.0-47.0) L 08/15/22 06:11 MCV 90.6 fL (80.0-100.0) 08/15/22 06:11 MCH 30.9 pg (27.0-34.0) 08/15/22 06:11 MCHC 34.1 g/dL (33.0-35.0) 08/15/22 06:11 RDW 13.5 % (11.6-16.5) 08/15/22 06:11 Plt Count 338 X10^3/uL (150.0-450.0) 08/15/22 06:11 MPV 7.9 fL (7.4-11.0) 08/15/22 06:11 Neut % (Auto) 61.9 % (42.0-75.0) 08/15/22 06:11 Lymph % (Auto) 23.4 % (21.0-51.0) 08/15/22 06:11 Rhea % (Auto) 9.2 % (0.0-13.0) 08/15/22 06:11 Eos % (Auto) 4.0 % (0.9-2.9) H 08/15/22 06:11 Baso % (Auto) 1.5 % (0.2-1.0) H 08/15/22 06:11 Neut # (Auto) 4.2 x10^3/uL (2.2-4.8) 08/15/22 06:11 Lymph # (Auto) 1.6 X10^3/uL (1.3-2.9) 08/15/22 06:11 Rhea # (Auto) 0.6 x10^3/uL (0.3-0.8) 08/15/22 06:11 Eos # (Auto) 0.3 x10^3/uL (0.0-0.2) H 08/15/22 06:11 Baso # (Auto) 0.1 X10^3/uL (0.0-0.1) 08/15/22 06:11 Absolute Nucleated RBC 0.0 /100WBC 08/15/22 06:11 Sodium 143 mmol/L (136-145) 08/15/22 06:11 Corrected Sodium TNP 08/15/22 06:11 Potassium 4.2 mmol/L (3.5-5.1) 08/15/22 06:11 Chloride 108 mmol/L (98-107) H 08/15/22 06:11 Carbon Dioxide 29.0 mmol/L (21-32) 08/15/22 06:11 BUN 11 mg/dL (7-18) 08/15/22 06:11 Creatinine 1.03 mg/dL (0.55-1.02) H 08/15/22 06:11 Est GFR (MDRD) Af Amer > 60 (>60) 08/15/22 06:11 Est GFR (MDRD) Non-Af 55 (>60) L 08/15/22 06:11 Glucose 92 mg/dL (65-99) 08/15/22 06:11 Lactic Acid 0.7 mmol/L (0.4-2.0) 08/12/22 15:35 Calcium 9.0 mg/dL (8.5-10.1) 08/15/22 06:11 Corrected Calcium 10.2 mg/dL (8.5-10.1) H 08/15/22 06:11 Total Bilirubin 0.20 mg/dL (0.2-1.0) 08/15/22 06:11 AST 39 Units/L (15-37) H 08/15/22 06:11 ALT 39 Units/L (12-78) 08/15/22 06:11 Alkaline Phosphatase 84 Units/L (46-116) 08/15/22 06:11 Total Protein 6.9 g/dL (6.4-8.2) 08/15/22 06:11 Albumin 2.5 g/dL (3.4-5.0) L 08/15/22 06:11 Globulin 4.4 g/dL (2.5-4.5) 08/15/22 06:11 Albumin/Globulin Ratio 0.6 Ratio (1.1-2.1) L 08/15/22 06:11 Specimen Type Clean catch urine 08/12/22 17:21 Urine Color Yellow (YELLOW) 08/12/22 17:21 Urine Appearance Clear (CLEAR) 08/12/22 17:21 Urine pH 5.0 (5.0 - 8.0) 08/12/22 17:21 Ur Specific [place] 1.010 (1.000-1.030) 08/12/22 17:21 Urine Protein 1+ (NEGATIVE) 08/12/22 17:21 Urine Glucose (UA) Negative (NEGATIVE) 08/12/22 17:21 Urine Ketones Negative (NEGATIVE) 08/12/22 17:21 Urine Blood 2+ (NEGATIVE) 08/12/22 17:21 Urine Nitrite Negative (NEGATIVE) 08/12/22 17:21 Urine Bilirubin Negative (NEGATIVE) 08/12/22 17:21 Urine Urobilinogen Normal (NORMAL) 08/12/22 17:21 Ur Leukocyte Esterase 1+ (NEGATIVE) 08/12/22 17:21 Urine RBC 5-10 /HPF (0-3) A 08/12/22 17:21 Urine WBC 3-5 /HPF (0-5) 08/12/22 17:21 Ur Squamous Epith Cells Few /HPF (NEGATIVE) 08/12/22 17:21 Urine Bacteria Trace /HPF (NEGATIVE) 08/12/22 17:21 Urine Mucus Rare /HPF (NEGATIVE) 08/12/22 17:21 Ur Culture Indicated? No/not indicated 08/12/22 17:21 Reason For Visit: CELLULITIS BOTH FEET, FAILURE TO THRIVE Discharge Date Discharge Date: 08/09/22 Discharge Diagnosis All Active Problems (Updated 08/12/22 @ 22:50 by Alireza Alford) Bilateral foot pain (Acute) Adult failure to thrive (Acute) Cellulitis of both feet (Acute) Plan of Treatment: Continue with present treatment and follow up plan. Pt is to keep follow up appointment as instructed and take medications as ordered. Discharge Medications Discharge Medications: No Known Allergies Allergy (Verified 08/07/22 04:58) New Prescriptions clindamycin HCl 300 mg capsule 600 mg PO Q8H CELLULITIS #40 caps 08/12/22 [Rx] hydrocodone 7.5 mg-acetaminophen 325 mg tablet 1 tab PO BID PRN pain #10 tabs 08/12/22 [Rx] Discharge Plan Discharge Plan Hospital Course: Pt is a 81 year old female past medical history of CAD, Hypertension, Neuropathy, admitted for cellulitis. Her hospital/treatment course included IVF NS@75ml/h and IV antibiotics Clindamycin. Pt responded well to treatment. Her erythema significantly improved and leukocytosis trended down back to normal li mits. She was discharged home in stable condition with rx clindamycin to finish antibiotic course. Instructed to follow up with pcp in 1 week. Patient Disposition: 01 HOME, SELF-CARE Condition: Stable Health Concerns: Post Hospitalization: new medications and changes needed to prevent readmission or further decline. Pt educated and given instructions on all concerns. Care Plan Goals: GET HOME HEALTH FOR PT/OT Plan of Treatment: Continue with present treatment and follow up plan. Pt is to keep follow up appointment as instructed and take medications as ordered. Prescriptions: New clindamycin HCl 300 mg capsule 600 mg PO Q8H MDD 6 Qty: 40 0RF hydrocodone-acetaminophen 7.5-325 mg tablet 1 tab PO BID MDD 2 PRN (Reason: pain) Qty: 10 0RF No Action buspirone 5 mg Tablet 5 mg PO DAILY trazodone 50 mg Tablet 50 mg PO HS aspirin 81 mg Tablet,Delayed Release (Dr/Ec) 81 mg PO DAILY pantoprazole [Protonix] 40 mg Tablet,Delayed Release (Dr/Ec) 40 mg PO BID gabapentin 300 mg Capsule 600 mg PO BID rosuvastatin [Crestor] 5 mg Tablet 5 mg PO DAILY duloxetine [Cymbalta] 60 mg Capsule,Delayed Release(Dr/Ec) 60 mg PO DAILY solifenacin [Vesicare] 10 mg Tablet 10 mg PO DAILY Centrum Silver 0.4 mg-300 mcg- 250 mcg Tablet 1 tab PO DAILY calcium carbonate-vitamin D3 [Calcium 600 + D(3)] 600 mg-10 mcg (400 unit) Tablet 1 tab PO DAILY nebivolol [Bystolic] 5 mg Tablet 5 mg PO QDAY loratadine 10 mg Capsule 10 mg PO QDAY clindamycin HCl 300 mg capsule 300 mg PO TID 7 Days Qty: 21 0RF Orders to Discharge Patient Discharge Orders: Discharge (Routine); Ordered 08/15/22 Ordered By: MACY COSME Follow ups/Referrals Follow ups/Referrals: PRIMITIVO HATFIELD V [Primary Care Provider] - 3 days Instructions Instructions: Cellulitis, Adult, [id number], Foot Pain Stand Alone Forms: Excuse From Work or School
[2022-08-15] MEDS: LOVENOX INJ 40 MG SYR SC SCH (12:41)
[2022-08-15] MEDS: PROTONIX INJ 40 MG VIAL IVP SCH (20:10)
[2022-08-15] MEDS: COLACE CAP 100 MG PO SCH (20:11)
[2022-08-15] MEDS: DESYREL PO SCH (20:12)
[2022-08-16] MEDS: NS 1,000 ML IV 1,000 ML IV SCH (03:03)
[2022-08-16 08:17] VITALS: BP 165/69
[2022-08-16] MEDS ORDERED: PHARMACY COMMENT IV NR (08:30)
[2022-08-16] MEDS: NEURONTIN CAP 300 MG PO SCH (08:53)
[2022-08-16] MEDS: ASPIRIN EC 81 MG PO SCH (08:53)
[2022-08-16] MEDS: CLARITIN PO SCH (08:55)
[2022-08-16] MEDS: BUSPAR PO SCH (08:55)
[2022-08-16] MEDS: CRESTOR TAB 10 MG PO SCH (08:57)
[2022-08-16 09:08] LABS: CREATININE 0.98 mg/dL (0.55-1.02); VANCOMYCIN,TROUGH 10.7 ug/mL (15-20)
[2022-08-16] MEDS: LOVENOX INJ 40 MG SYR SC SCH (09:09)
[2022-08-16] MEDS: OSCAL+D or CALTRATE+D PO SCH (09:09)
[2022-08-16] MEDS: ZEBETA TAB 5 MG PO SCH (09:09)
[2022-08-16] MEDS: DEMEROL INJ IVP PRN (09:10)
[2022-08-16] MEDS: DETROL LA 4 MG CAP EXT REL PO SCH (09:10)
[2022-08-16] MEDS: MILK OF MAGNESIA PO SCH (09:10)
[2022-08-16] MEDS: CYMBALTA PO SCH (09:11)
== END 2022-08-16 09:45 | disposition home or self-care (01) ==
LOC: ER 14:16 → MED/SURG 14:16
PROVIDERS: ADMIT Obstetrics & Gynecology Obstetrics; ATTEND Obstetrics & Gynecology Obstetrics